=== PATIENT | female | born 1995 | race Asian ===

== ENCOUNTER 2019-01-01 10:34 | Emergency (ER) | payer BC, OTHER ==
[~2019-01-01] VITALS: Ht 157.5 cm; Wt 87.4 kg
[2019-01-01 10:42] VITALS: BP 124/79
== END 2019-01-01 12:08 ==
LOC: ED 12:02
DX: M25.561 Pain in right knee (principal); F17.200 Nicotine dependence, unspecified, uncomplicated
CPT/HCPCS: 29505; 99283